=== PATIENT | male | born 1970 | race American Indian/Alaskan Native ===

== ENCOUNTER 2021-01-12 15:42 | Emergency (ER) | payer OTHER ==
[2021-01-12 15:46] VITALS: BP 132/89
[2021-01-12 18:59] LABS: Hepatitis C Virus Antibody Non-Reactive (NonReactive)
[2021-01-12 19:05] LABS: Hepatitis B Surface Antigen Nonreactive (Negative)
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
== END 2021-01-13 01:00 | disposition home or self-care (01) ==
LOC: ED 15:42
DX: Z20.9 Contact with and (suspected) exposure to unspecified communicable disease (principal); Z91.013 Allergy to seafood
CPT/HCPCS: 36415; 80074; 87806; 99283

== ENCOUNTER 2021-02-12 16:18 | Emergency (ER) | payer OTHER, BC ==
--- NOTE | 2021-02-12 17:06 | XRay Report ---
XR shoulder 2+V RT INDICATION / CLINICAL INFORMATION: right shoulder pain. COMPARISON: None available. FINDINGS: BONES/JOINT(S): No acute fracture or subluxation. Moderate DJD in the AC joint. SOFT TISSUES: No significant abnormality. ADDITIONAL FINDINGS: None. Signer Name: Tesfaye Monteiro MD Signed: 02/12/2021 5:01 PM Workstation Name: [id number]
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
[2021-02-12 17:18] VITALS: BP 124/84
== END 2021-02-12 17:18 | disposition home or self-care (01) ==
LOC: ED 16:18
DX: M19.011 Primary osteoarthritis, right shoulder (principal); M25.511 Pain in right shoulder; E11.8 Type 2 diabetes mellitus with unspecified complications; Z91.013 Allergy to seafood
CPT/HCPCS: 99283

== ENCOUNTER 2021-03-12 20:34 | Emergency (ER) | payer BC, OTHER ==
[2021-03-12 20:42] VITALS: BP 147/88
[2021-03-12] MEDS ORDERED: traMADol 50 MG TAB PO ONE (20:53)
[2021-03-12] MEDS ORDERED: AMOXICILLIN/K CLAV 875/125MG TAB PO ONE (20:53)
--- NOTE | 2021-03-12 20:58 | Emergency Department Report ---
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 Patient states subjective facial swelling however no objective swelling noted no fever no chills no nausea or vomiting. There is no throat or ear pain. This is a chronic problem for this patient. Patient states he has not seen a dentist. Symptoms are exacerbated by hot and cold stimuli. Symptoms are relieved by nothing tried. - Related Data Previous Rx's Medication Instructions Recorded Last Taken Type Emtricitabine/Tenofovir (Tdf) 1 each PO DAILY #30 tablet 01/13/21 Unknown Rx [Truvada 133 mg-200 mg Tablet] Meloxicam [Mobic] 7.5 mg PO QDAY #10 tablet 02/12/21 Unknown Rx methOCARBAMOL [Robaxin TAB] 500 mg PO BID PRN #20 tab 02/12/21 Unknown Rx Amoxicillin [Trimox CAP] 500 mg PO Q8H 7 Days #21 capsule 03/12/21 Unknown Rx traMADoL [Ultram] 50 mg PO Q6HR PRN #12 tablet 03/12/21 Unknown Rx Allergies Allergy/AdvReac Type Severity Reaction Status Date / Time shellfish derived AdvReac Anaphylaxis Verified 01/12/21 15:46 ED Review of Systems ROS: Stated complaint: FACIAL SWELLING, POSS DENTAL Other details as noted in HPI Constitutional: denies: chills, fever Eyes: denies: eye pain, eye discharge, vision change ENT: dental pain. denies: ear pain, throat pain, epistaxis, congestion Respiratory: denies: cough, shortness of breath, wheezing Cardiovascular: denies: chest pain, palpitations Endocrine: no symptoms reported Gastrointestinal: denies: abdominal pain, nausea, diarrhea Genitourinary: denies: urgency, dysuria Musculoskeletal: denies: back pain, joint swelling, arthralgia Skin: denies: rash, lesions Neurological: denies: headache, weakness, paresthesias Psychiatric: denies: anxiety, depression Hematological/Lymphatic: denies: easy bleeding, easy bruising ED Past Medical Hx - Past Medical History Hx Diabetes: Yes - Medications Home Medications: Home Medications Medication Instructions Recorded Confirmed Last Taken Type Emtricitabine/Tenofovir (Tdf) 1 each PO DAILY #30 tablet 01/13/21 Unknown Rx [Truvada 133 mg-200 mg Tablet] Meloxicam [Mobic] 7.5 mg PO QDAY #10 tablet 02/12/21 Unknown Rx methOCARBAMOL [Robaxin TAB] 500 mg PO BID PRN #20 tab 02/12/21 Unknown Rx Amoxicillin [Trimox CAP] 500 mg PO Q8H 7 Days #21 capsule 03/12/21 Unknown Rx traMADoL [Ultram] 50 mg PO Q6HR PRN #12 tablet 03/12/21 Unknown Rx ED Physical Exam - General Limitations: No Limitations General appearance: alert, in no apparent distress - Head Head exam: Present: normocephalic, normal inspection - Eye Eye exam: Present: normal appearance, EOMI. Absent: conjunctival injection, nystagmus Pupils: Present: normal accommodation - ENT ENT exam: Present: mucous membranes moist, TM's normal bilaterally, normal external ear exam - Expanded ENT Exam Expanded Teeth exam: Present: dental caries (29 no focal abscess) Throat exam: Positive: normal inspection. Negative: tonsillar erythema, tonsillomegaly, tonsillar exudate - Neck Neck exam: Present: normal inspection, full ROM. Absent: tenderness, lymphadenopathy, thyromegaly - Respiratory Respiratory exam: Present: normal lung sounds bilaterally. Absent: respiratory distress, wheezes, stridor, chest wall tenderness - Cardiovascular Cardiovascular Exam: Present: regular rate, normal rhythm, normal heart sounds. Absent: systolic murmur, diastolic murmur, rubs, gallop - GI/Abdominal GI/Abdominal exam: Present: soft, normal bowel sounds. Absent: distended, tenderness - Rectal Rectal exam: Present: deferred - Extremities Exam Extremities exam: Present: normal inspection, full ROM - Back Exam Back exam: Present: normal inspection, full ROM. Absent: tenderness - Neurological Exam Neurological exam: Present: alert, oriented X3, CN II-XII intact - Psychiatric Psychiatric exam: Present: normal affect, normal mood - Skin Skin exam: Present: warm, dry, intact, normal color. Absent: rash ED Course Vital Signs 03/12/21 20:40 Temperature 98.0 F Pulse Rate 83 Respiratory 18 Rate Blood Pressure 147/88 [Right] O2 Sat by Pulse 100 Oximetry ED Medical Decision Making - Medical Decision Making This straightforward infected dental caries without dental abscess. Plan antibiotics pain control follow-up with dentist on Sunday as scheduled. Return to emergency department if symptoms worsen. Patient verbalized agreement understanding discharge plan patient will be DC'd to home in stable condition at this time patient is currently tolerating p.o. intake without symptoms. Critical care attestation.: If time is entered above; I have spent that time in minutes in the direct care of this critically ill patient, excluding procedure time. ED Disposition Clinical Impression: Dental caries Disposition: HOME / SELF CARE / HOMELESS Is pt being admited?: No Does the pt Need Aspirin: No Condition: Stable Instructions: Preventive Dental Care, Adult Additional Instructions: Medication as prescribed, follow-up with your dentist in 2 days as scheduled. Return to emergency department if symptoms worsen. Prescriptions: Amoxicillin [Trimox CAP] 500 mg PO Q8H 7 Days #21 capsule traMADoL [Ultram] 50 mg PO Q6HR PRN #12 tablet PRN Reason: Pain Referrals: [facility] [Provider Group] - 3-5 Days Forms: Work/School Release Form(ED) Time of Disposition: 21:02
== END 2021-03-12 22:00 | disposition home or self-care (01) ==
LOC: ED 20:34
DX: K02.9 Dental caries, unspecified (principal); E11.9 Type 2 diabetes mellitus without complications
CPT/HCPCS: 99282